=== PATIENT | male | born 1955 | race African-American/Black ===

== ENCOUNTER 2018-02-25 18:34 | Inpatient (IN) | payer BC ==
[~2018-02-25] VITALS: Ht 177.8 cm; Wt 112.7 kg
[~2018-02-25 18:34] MED LIST: AMLO5TAB88 PO; ATOR40TA70 PO; CARV25TA47 PO; FURO20TA4 PO; LISI40TA4 PO; OMEP20CA4 PO
[2018-02-25] MEDS ORDERED: ALBUTEROL (0.083%) 2.5MG/3ML NEB HHN STA (23:55)
[2018-02-26] MEDS ORDERED: FUROSEMIDE 40MG/4ML VIAL IVP ONE
[2018-02-26 00:11] LABS: BASOPHILS % 0.7 % (0.0-2.0); EOSINOPHILS % 1.6 % (0.0-5.0); HEMOGLOBIN. 12.2 g/dL (14.0-18.0); LYMPHOCYTES % 16.4 % (20.0-50.0); MEAN CORPUSCULAR HEMOGLOBIN 26.2 pg (28.0-32.0); MEAN CORPUSCULAR VOLUME 83.5 fL (80.0-94.0); MEAN PLATELET VOLUME 10.1 fl (7.4-10.4); MONOCYTES % 8.9 % (2.0-8.0); NEUTROPHILS % 72.4 % (40.0-76.0); PLATELET 128 x1000/uL (130-400); RED BLOOD CELL COUNT 4.67 mill/uL (4.7-6.1); RED CELL DISTRIBUTION WIDTH 23.6 % (11.6-14.6)
[2018-02-26 00:19] LABS: CHLORIDE 107 mEq/L (98-107); INR 1.4; PARTIAL THROMBOPLASTIN TIME 27.8 sec (23.4-31.0); PROTHROMBIN TIME 14.4 sec (9.1-11.1)
[2018-02-26 00:23] LABS: ETHANOL BLOOD < 10 mg/dL
[2018-02-26 00:39] LABS: PLATELET ESTIMATE NORMAL
[2018-02-26] MEDS ORDERED: ASPIRIN 81MG TABLET PO ONE (01:00)
[2018-02-26 02:04] LABS: *AMPHETAMINES SCREEN URINE NEGATIVE (NEGATIVE); *BARBITURATES SCREEN URINE NEGATIVE (NEGATIVE)
[2018-02-26 02:05] LABS: *BENZODIAZEPINES SCREEN URINE NEGATIVE (NEGATIVE); *COCAINE SCREEN URINE NEGATIVE (NEGATIVE); CANNABINOID URINE SCREEN NEGATIVE (NEGATIVE); METHADONE URINE SCREEN NEGATIVE (NEGATIVE); OPIATES URINE SCREEN NEGATIVE (NEGATIVE); PHENCYCLIDINE URINE SCREEN NEGATIVE (NEGATIVE)
[2018-02-26 15:51] VITALS: BP 105/58
[2018-02-26] MEDS ORDERED: IPRATROPIUM/ALBUTEROL 0.5-3(2.5)MG/3ML NEB HHN PRN (16:24)
[2018-02-26] MEDS ORDERED: BENZONATATE 100MG CAPSULE PO PRN (16:25)
[2018-02-26] MEDS ORDERED: ACETAMINOPHEN 325MG TABLET PO PRN (16:26)
[2018-02-26] MEDS ORDERED: ONDANSETRON HCL 4MG/2ML INJ IV PRN (16:26)
[2018-02-26] MEDS: AZITHROMYCIN 500 MG TABLET PO SCH (17:28)
[2018-02-26] MEDS: FUROSEMIDE 40MG/4ML VIAL IVP SCH (17:28)
[2018-02-26] MEDS: CEFTRIAXONE 1 G PREMIX 50 ML IV SCH ×2 (18:00→22:13)
[2018-02-26] MEDS ORDERED: PNEUMOCOCCAL 23-VAL P-SAC VAC 0.5 ML IM ONE (18:45)
[2018-02-26] MEDS ORDERED: INFLUENZA VIRUS VACCINE(AFLURIA) 0.5ML SYR IM ONE (18:45)
[2018-02-26 20:00] VITALS: BP 101/62
[2018-02-26] MEDS: ENOXAPARIN 30MG/0.3ML SYR SUBCUT SCH (21:49)
[2018-02-27] VITALS: BP 108/65
[2018-02-27 04:00] VITALS: BP 107/70
[2018-02-27 07:53] LABS: BASOPHILS % 0.3 % (0.0-2.0); EOSINOPHILS % 2.6 % (0.0-5.0); HEMATOCRIT. 31.5 % (42.0-52.0); HEMOGLOBIN. 10.3 g/dL (14.0-18.0); LYMPHOCYTES % 14.2 % (20.0-50.0); MEAN CORPUSCULAR HEMOGLOBIN 26.9 pg (28.0-32.0); MEAN CORPUSCULAR VOLUME 82.1 fL (80.0-94.0); MEAN PLATELET VOLUME 10.6 fl (7.4-10.4); MONOCYTES % 13.3 % (2.0-8.0); NEUTROPHILS % 69.6 % (40.0-76.0); PLATELET 116 x1000/uL (130-400); RED BLOOD CELL COUNT 3.83 mill/uL (4.7-6.1); RED CELL DISTRIBUTION WIDTH 23.1 % (11.6-14.6)
[2018-02-27 08:00] VITALS: BP 117/69
[2018-02-27] MEDS: CARVEDILOL 25MG TABLET PO SCH ×2 (09:00→20:52)
[2018-02-27] MEDS: ASPIRIN 81MG TABLET PO SCH (09:00)
[2018-02-27] MEDS: AZITHROMYCIN 500 MG TABLET PO SCH (09:00)
[2018-02-27] MEDS: ENOXAPARIN 30MG/0.3ML SYR SUBCUT SCH ×2 (09:01→20:52)
[2018-02-27] MEDS: FUROSEMIDE 40MG/4ML VIAL IVP SCH ×2 (09:59→17:54)
[2018-02-27 12:00] VITALS: BP 110/69
[2018-02-27] MEDS ORDERED: LOSARTAN POTASSIUM 25 MG TABLET PO SCH (14:30)
[2018-02-27 16:00] VITALS: BP 104/70
[2018-02-27] MEDS: POTASSIUM CHLORIDE 20MEQ TABLET SR PO SCH (17:52)
[2018-02-27 20:00] VITALS: BP 97/60
[2018-02-27] MEDS: GUAIFENESIN 600MG ER TABLET PO SCH (20:52)
[2018-02-27] MEDS: ATORVASTATIN CALCIUM 40MG TABLET PO SCH (20:52)
[2018-02-28] VITALS: BP 97/67
[2018-02-28 04:00] VITALS: BP 110/41
[2018-02-28 06:33] LABS: BASOPHILS % 0.3 % (0.0-2.0); EOSINOPHILS % 2.8 % (0.0-5.0); HEMATOCRIT. 30.4 % (42.0-52.0); HEMOGLOBIN. 9.8 g/dL (14.0-18.0); LYMPHOCYTES % 20.1 % (20.0-50.0); MEAN CORPUSCULAR HEMOGLOBIN 26.3 pg (28.0-32.0); MEAN CORPUSCULAR VOLUME 81.7 fL (80.0-94.0); MEAN PLATELET VOLUME 10.1 fl (7.4-10.4); MONOCYTES % 13.3 % (2.0-8.0); NEUTROPHILS % 63.5 % (40.0-76.0); PLATELET 109 x1000/uL (130-400); RED BLOOD CELL COUNT 3.71 mill/uL (4.7-6.1); RED CELL DISTRIBUTION WIDTH 23.1 % (11.6-14.6)
[2018-02-28 08:00] VITALS: BP 99/65
[2018-02-28] MEDS: CARVEDILOL 25MG TABLET PO SCH ×2 (09:00→21:00)
[2018-02-28] MEDS: LOSARTAN POTASSIUM 25 MG TABLET PO SCH (09:00)
[2018-02-28] MEDS: AZITHROMYCIN 500 MG TABLET PO SCH (09:07)
[2018-02-28] MEDS: ASPIRIN 81MG TABLET PO SCH (09:07)
[2018-02-28] MEDS: POTASSIUM CHLORIDE 20MEQ TABLET SR PO SCH (09:07)
[2018-02-28] MEDS: GUAIFENESIN 600MG ER TABLET PO SCH ×2 (09:07→21:59)
[2018-02-28] MEDS: ENOXAPARIN 30MG/0.3ML SYR SUBCUT SCH ×2 (09:08→21:59)
[2018-02-28] MEDS: FUROSEMIDE 40MG/4ML VIAL IVP SCH ×2 (10:09→17:52)
[2018-02-28 12:00] VITALS: BP 106/66
[2018-02-28 16:00] VITALS: BP 118/74
[2018-02-28 17:19] LABS: BG BASE EXCESS 2.3 mmol/L (-2.0-2.0); BG CARBOXYHEMOGLOBIN 0.7 % (0.5-1.5); BG DEOXYHEMOGLOBIN 5.2 % (0.0-5.0); BG FRACTION INSPIRED OXYGEN 21; BG HCO3 ACT 26.7 mmol/L (22.0-26.0); BG METHEMOGLOBIN 0.3 % (0.0-1.5); BG OXYGEN SATURATION 94.7 % (92.0-98.5); BG OXYHEMOGLOBIN 93.8 % (94.0-97.0); BG PH 7.432 (7.350-7.450); BG PO2 78.8 mmHg (75.0-100.0); BG SAMPLE SITE RIGHT BRACHIAL; BG TOTAL HEMOGLOBIN 10.8 g/dL (12.0-18.0); BG VENT MODE ROOM AIR
[2018-02-28] MEDS: CEFTRIAXONE 1 G PREMIX 50 ML IV SCH (17:52)
[2018-02-28 21:44] VITALS: BP 99/69
[2018-02-28 21:44] LABS: CLARITY URINE CLEAR (CLEAR); COLOR URINE YELLOW (YELLOW); KETONES URINE NEGATIVE (NEGATIVE); LEUKOCYTE ESTERASE URINE NEGATIVE (NEGATIVE); NITRITE URINE NEGATIVE (NEGATIVE); OCCULT BLOOD URINE NEGATIVE (NEGATIVE); PH URINE 5.5 (4.5-8.0); PROTEIN URINE NEGATIVE (NEGATIVE)
[2018-02-28] MEDS: ATORVASTATIN CALCIUM 40MG TABLET PO SCH (21:59)
[2018-03-01] VITALS (7 sets, daily range): BP systolic 98–118; BP diastolic 64–72
[2018-03-01 06:04] LABS: BASOPHILS % 0.7 % (0.0-2.0); EOSINOPHILS % 2.1 % (0.0-5.0); HEMATOCRIT. 30.9 % (42.0-52.0); HEMOGLOBIN. 10.1 g/dL (14.0-18.0); LYMPHOCYTES % 21.8 % (20.0-50.0); MEAN CORPUSCULAR HEMOGLOBIN 26.9 pg (28.0-32.0); MEAN CORPUSCULAR VOLUME 82.3 fL (80.0-94.0); MEAN PLATELET VOLUME 10.2 fl (7.4-10.4); MONOCYTES % 12.5 % (2.0-8.0); NEUTROPHILS % 62.9 % (40.0-76.0); PLATELET 108 x1000/uL (130-400); RED BLOOD CELL COUNT 3.75 mill/uL (4.7-6.1); RED CELL DISTRIBUTION WIDTH 22.2 % (11.6-14.6)
[2018-03-01] MEDS: LOSARTAN POTASSIUM 25 MG TABLET PO SCH (09:00)
[2018-03-01] MEDS: CARVEDILOL 25MG TABLET PO SCH ×2 (09:00→21:00)
[2018-03-01] MEDS: ENOXAPARIN 30MG/0.3ML SYR SUBCUT SCH ×2 (09:28→21:26)
[2018-03-01] MEDS: FUROSEMIDE 40MG/4ML VIAL IVP SCH (09:28)
[2018-03-01] MEDS: ASPIRIN 81MG TABLET PO SCH (09:29)
[2018-03-01] MEDS: AZITHROMYCIN 500 MG TABLET PO SCH (09:29)
[2018-03-01] MEDS: GUAIFENESIN 600MG ER TABLET PO SCH ×2 (09:29→21:25)
[2018-03-01] MEDS: POTASSIUM CHLORIDE 20MEQ TABLET SR PO SCH (09:29)
[2018-03-01] MEDS ORDERED: SPIRONOLACTONE 25MG TABLET PO SCH (10:30)
[2018-03-01] MEDS ORDERED: CEFTRIAXONE 1 G PREMIX 50 ML IV SCH (17:00)
[2018-03-01] MEDS ORDERED: FUROSEMIDE 40MG/4ML VIAL IVP SCH (17:15)
[2018-03-01] MEDS: ATORVASTATIN CALCIUM 40MG TABLET PO SCH (21:25)
[2018-03-02] VITALS: BP 106/71
== END 2018-03-02 01:41 | disposition short-term general hospital (02) | DRG 291 ==
LOC: ER 18:34 → ORIP 23:57 → ENRESERV 02-26 13:36 → 7WST 02-26 15:39
PROVIDERS: ADMIT Internal Medicine; ATTEND Internal Medicine
DX: I13.0 Hypertensive heart and chronic kidney disease with heart failure and stage 1 through stage 4 chronic kidney disease, or unspecified chronic kidney disease (principal); J18.1 Lobar pneumonia, unspecified organism; I50.43 Acute on chronic combined systolic (congestive) and diastolic (congestive) heart failure; N17.9 Acute kidney failure, unspecified; D68.9 Coagulation defect, unspecified; E66.2 Morbid (severe) obesity with alveolar hypoventilation; I42.0 Dilated cardiomyopathy; R06.03 Acute respiratory distress; D64.9 Anemia, unspecified; D69.6 Thrombocytopenia, unspecified; E78.5 Hyperlipidemia, unspecified; N18.9 Chronic kidney disease, unspecified; I48.91 Unspecified atrial fibrillation; Z79.01 Long term (current) use of anticoagulants; Z86.74 Personal history of sudden cardiac arrest; Z95.810 Presence of automatic (implantable) cardiac defibrillator; Z68.35 Body mass index [BMI] 35.0-35.9, adult; Z79.899 Other long term (current) drug therapy
CPT/HCPCS: 36415; 36600; 71045; 80048; 80061; 80305; 82375; 82805; 83735; 83880; 84145; 84443; 84484; 87804; 93005; 93306; 93970; 93971; 96374; 97162; 99291; G0482; J0696; J1650; J1940; J7050; J7611